=== PATIENT | female | born 2005 | race Caucasian/White ===

== ENCOUNTER 2024-01-29 12:09 | Emergency (ER) | payer OTHER, SELFPAY ==
[2024-01-29 12:12] VITALS: BP 118/78
--- NOTE | 2024-01-29 12:54 | ED.GENMED ---
History of Present Illness
General
Chief Complaint: Exposure-Chemical
Time Seen by Provider: 01/29/24 12:28
History of Present Illness
History of Present Illness:
18-year-old otherwise healthy female presents to the emergency department for evaluation of dizziness and nausea that developed while at work today, numerous coworkers had similar symptoms develop after smelling an abnormal odor. [employer] company and
EMS were notified however they could not determine the source of the odor. Patient reports symptoms have resolved since arriving to the ER. Denies any complaints at this time
Review of Systems
Review of Systems
Allergies reviewed?: Yes
All Other Systems: ROS reviewed and negative except as documented in HPI and ROS
Phy Exam
Physical Exam
Physical Exam:
GEN: Well appearing, NAD, WDWN
HEENT: Pupils equal round and reactive to light, no nystagmus, oral mucosa moist, no scleral icterus
Cardiac: Regular rate and rhythm, no murmurs
Lung: No respiratory distress, no tachypnea
MSK: No gross deformity or injuries
Skin: Good color, no pallor or jaundice, no rashes
Neuro: AO x3, moves all extremities freely
Psych: Calm, cooperative
Course
Orders/Labs/Results
Orders:
Orders
01/29/24 12:15
Electrocardiogram (*1) Urgent
Reason for Study: Vertigo / Dizzy
01/29/24 12:16
EKG- Treatment ONCE
Vital Signs
Initial and Last Documented VS:
Initial Vital Signs
Temp Pulse Resp BP Pulse Ox
98.3 F 82 18 118/78 99
01/29/24 12:12 01/29/24 12:12 01/29/24 12:12 01/29/24 12:12 01/29/24 12:12
Last Documented Vital Signs
Temp Pulse Resp BP Pulse Ox
98.3 F 82 18 118/78 99
01/29/24 12:12 01/29/24 12:12 01/29/24 12:12 01/29/24 12:12 01/29/24 12:12
MDM/Problems Addressed
MDM/Problems Addressed:
No indication for labs at this time. Clearly if there was a noticeable odor thus this rules out carbon monoxide. EKG is unremarkable.
*Critical Care Note
Total Time (30-74mins, 75-104mins- exclusive of procedures): Not Applicable
ED Attending Note
-
Portions of this chart may have been created with voice recognition software.� Occasional wrong word or��sound alike� substitutions may have occurred due to the inherent limitations of voice recognition software.
Discharge Plan
Departure
Patient Disposition: Home (Routine Discharge)
Date of Disposition: 01/29/24
Time of Disposition: 12:55
Patient with high blood pressure during this ER visit?: No
Discharge Problem:
Dizziness
Instructions: Dizziness, Adult ED
Referrals:
Maria Elena Garcia, DO [Family Provider] -
Stand Alone Forms: Return to Work
Interventions
Interventions:
*Risk Screen - Suicide Last Done: 01/29/24 12:12
*General Assessment Last Done: 01/29/24 12:12
*Neglect/Abuse Screening Last Done: 01/29/24 12:12
*ED COVID-19 Vaccine History Last Done: 01/29/24 12:12
*Nursing Disposition Last Done: 01/29/24 13:05
XB-Pvbmcp-Krjictvytz Assessment Last Done: 01/29/24 12:28
ED- Pulmonary Assessment Last Done: 01/29/24 12:28
ED-Skin Assessment Last Done: 01/29/24 12:28
Discharge Date and Time
Discharge Date/Time: 01/29/24 13:05
Print Language: INDONESIAN
== END 2024-01-29 13:05 | disposition home or self-care (01) ==
LOC: EMR 12:09
PROVIDERS: EMERGENCY PHYSICIAN Emergency Medicine; FAMILY PHYSICIAN Family Medicine
DX: R42 Dizziness and giddiness (principal); R11.0 Nausea
CPT/HCPCS: 99283; 93005

== ENCOUNTER 2024-12-05 09:56 | Emergency (ER) | payer OTHER, SELFPAY ==
--- NOTE | 2024-12-05 10:04 | ED.GENMED ---
History of Present Illness
General
Chief Complaint: Fainting/Passed Out
Source: patient
Exam Limitations: none
Time Seen by Provider: 12/05/24 09:57
History of Present Illness
History of Present Illness:
19-year-old female presents complaining of near syncopal episode at a place of employment. She was sitting and started to feel lightheaded and walked to the bathroom to lay down where this typically helps his symptoms. She tried to sit up and
started to see black and laid back down. She then got a hold of a coworker who called the ambulance. 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 She notes a slight headache. She has a history of migraines but this
feels different. She denies any chest pain or shortness of breath. She denies any vision change. No other
Phy Exam
Physical Exam
Physical Exam:
General: Well-appearing but anxious female no acute respiratory distress
HEENT normal cephalic pupils equal round reactive to light tongue is midline uvula midline face is symmetric posterior pharynx without erythema or exudate neck is supple no adenopathy
Heart: Regular rate and rhythm
Lungs: Clear no wheeze
Neurologic exam: Tremor noted throughout. But she is alert and oriented x 3
Abdomen is soft nontender
Skin is warm no rash
Course
Orders/Labs/Results
Orders:
Orders
12/05/24 10:00
Electrocardiogram (*1) Urgent
Reason for Study: Syncope
EKG- Treatment ONCE
12/05/24 10:03
0.9% Sodium Chloride 1000 ml [Nss] 1,000 ml IV BOLUS
Test Result ONCE
12/05/24 10:04
Electrocardiogram (*1) Urgent
Reason for Study: Syncope
EKG- Treatment ONCE
12/05/24 10:07
Complete Blood Count/With Diff Urgent
Comprehensive Metabolic Panel Urgent
HCG, Serum Qualitative Screen Urgent
Abnormal Lab Results
12/05/24
10:07
WBC 11.1 H 10^3/uL
(4.8-10.8)
Absolute Neuts (auto) 7.3 H 10^3/uL
(1.4-6.5)
Absolute Monos (auto) 0.9 H 10^3/uL
(0.1-0.6)
Chloride 108 H mmol/L
(98-107)
Glucose 101 H mg/dl
(70-99)
12/05/24 10:07
12/05/24 10:07
Vital Signs
Initial and Last Documented VS:
Initial Vital Signs
Pulse Resp Pulse Ox
88 26 99
12/05/24 10:05 12/05/24 10:05 12/05/24 10:05
Last Documented Vital Signs
Temp Pulse Resp BP Pulse Ox
98.6 F 67 20 104/77 98
12/05/24 12:47 12/05/24 12:47 12/05/24 12:47 12/05/24 12:47 12/05/24 12:47
MDM/Problems Addressed
Differential Diagnosis Includes:
Patient presents after near syncopal episode at place of employment. Consider arrhythmia versus dehydration versus orthostasis versus vasovagal episode
Past medical history complicating today's care has history of Chiari malformation with multiple surgeries on her head and back
Will obtain labs get EKG and hydrate.
*Pulse Oximetry
Patient hypoxic: no
*Critical Care Note
Total Time (30-74mins, 75-104mins- exclusive of procedures): Not Applicable
Update Note
Update Note:
EKG shows sinus rhythm without ischemic changes. There is a rate of 87 patient was hydrated here with a liter of fluid. Heart rate is better. She is feeling better has ambulated to the bathroom. No indication for admission. Stable for discharge
home with presyncope. Recommend follow-up with
ED Attending Note
-
Portions of this chart may have been created with voice recognition software.� Occasional wrong word or��sound alike� substitutions may have occurred due to the inherent limitations of voice recognition software.
Discharge Plan
Departure
Patient Disposition: Home (Routine Discharge)
Date of Disposition: 12/05/24
Time of Disposition: 13:17
Patient with high blood pressure during this ER visit?: No
Discharge Problem:
Pre-syncope
Prescriptions:
No Action
No Current Medications
0
Referrals:
Maria Elena Garcia, DO [Family Provider, Family Practice]
Activity Restrictions/Additional Instructions:
Rest. Stay hydrated. Return here for worsening symptoms otherwise follow-up with your doctors
Interventions
Interventions:
*Risk Screen - Suicide Last Done: 12/05/24 10:10
*General Assessment Last Done: 12/05/24 10:10
*Neglect/Abuse Screening Last Done: 12/05/24 10:10
*ED- Fall Risk Assessment Last Done: 12/05/24 10:10
*ED COVID-19 Vaccine History Last Done: 12/05/24 10:10
*ED Influenza Vaccine History Last Done: 12/05/24 10:10
ED- Cardiac Assessment Last Done: 12/05/24 10:10
ED- Neurological Assessment Last Done: 12/05/24 10:10
Discharge Date and Time
Print Language: FRISIAN
[2024-12-05 10:05] VITALS: BMI 20.6
[2024-12-05 10:10] VITALS: BP 128/83
[2024-12-05 10:15] LABS: Hematocrit 40.2 % (37.0-47.0); Hemoglobin 14.1 g/dL (12.0-16.0); Mean Corp Hgb Conc. 35.1 g/dL (33.0-37.0); Mean Corpuscular Volume 83.8 fL (81.0-99.0); Nucleated Red Blood Cells % 0 %; Platelet Count 267 10^3/uL (130-400); Red Cell Dist. Width 13.2 % (11.5-14.5)
[2024-12-05] MEDS: NSS 1000 IV (10:22)
[2024-12-05 11:00] VITALS: BP 120/69
[2024-12-05 11:07] LABS: HCG, Serum Qualitative Screen Negative
[2024-12-05 11:12] LABS: ALT (SGPT) 24 U/L (0-35); AST (SGOT) 27 U/L (14-36); Albumin 4.8 g/dl (3.5-5.0); Alkaline Phosphatase 75 U/L (38-126); Blood Urea Nitrogen 10 mg/dl (7-17); Calcium 9.6 mg/dl (8.4-10.2); Carbon Dioxide 22 mmol/L (22-30); Chloride 108 mmol/L (98-107); Estimated Creatinine Clearance 96 ml/min; Glucose 101 mg/dl (70-99); Potassium 4.2 mmol/L (3.5-5.1); Sodium 139 mmol/L (135-145); Total Protein 7.7 g/dl (6.3-8.2); eGFR > 60.00
[2024-12-05 12:00] VITALS: BP 104/77
[2024-12-05 12:47] VITALS: BP 104/77
== END 2024-12-05 14:03 | disposition home or self-care (01) ==
LOC: EMR 09:56
PROVIDERS: Physician Assistant; EMERGENCY PHYSICIAN Emergency Medicine; FAMILY PHYSICIAN Family Medicine
DX: R55 Syncope and collapse (principal); G93.5 Compression of brain
CPT/HCPCS: 99284; 96360; 80053; 84703; 85025; 93005